=== PATIENT | female | born 1985 | race Caucasian/White ===

== ENCOUNTER 2022-11-02 10:29 | Outpatient (REF) | payer OTHER, SELFPAY ==
--- NOTE | 2022-11-02 09:50 | PAPFT_PTH ---
PATIENT: Rosanne Pierce LOC: [facility]#:[id number] AGE/SX: 37/F ROOM: RE11/02/[address]: Charles Muhammad : 1985 BED: DIS: 11/02/2022 SPEC #: [id number] RECD: 11/02/22 18:09 STATUS: ELICEO REReed #: [id number] SAMMY: 11/02/22 09:[address]: Charles Muhammad DEPT: [facility] Cytology RECD BY: Yamileth Villela Tissues: 1 - CX/ENDOCX FOR PAP SMEARS Procedures: PAP THIN PREP/UVM Screening HPV DNA PROBE Comments: [id number]
== END 2022-11-02 10:30 | disposition home or self-care (01) ==
LOC: NCHCN 10:29
PROVIDERS: PCP Family Medicine; Visit Provider Family Medicine
DX: Z12.4 Encounter for screening for malignant neoplasm of cervix (principal)
CPT/HCPCS: 88142; 87624

== ENCOUNTER 2023-05-17 12:12 | Emergency (ER) | payer OTHER, SELFPAY ==
[2023-05-17] VITALS (8 sets, daily range): BP systolic 147–160; BP diastolic 99–120; PULSE 106–115; RESP 18; TEMP 37.4; O2SAT 93–100
--- NOTE | 2023-05-17 12:45 | DI.CT_ITS ---
Exam(s) CT NECK W EXAM: CT NECK W CLINICAL HISTORY: globus sensation eval for retropharyngeal abscess. TECHNIQUE: Imaging Protocol: Axial computed tomography images with coronal and sagittal reformatted images were created and reviewed CONTRAST MATERIAL: Intravenous: Omnipaque 350 Contrast volume:100 ml contrast COMPARISON: No exams were available for comparison FINDINGS: Parotids/submandibular/thyroid gland: Normal. Lymphadenopathy: Mildly enlarged lymph nodes on the left side of the neck measuring 2 cm. Other sma ller nodes bilaterally. Likely reactive lymph nodes. Carotids/Jugular: No significant stenosis or dissection.. Soft tissues: The floor the mouth is unremarkable. The epiglottis and vocal cords are within normal limits. Lungs: Images through both lung apices are unremarkable. Bones: Vertebral bodies and disc spaces are maintained. Visualized portions of the brain and orbits: Unremarkable. Sinuses and mastoids: Mild ethmoid sinus mucosal thickening. IMPRESSION: Nor mildly enlarged left cervical lymph nodes. No evidence retropharyngeal abscess. RADIATION DOSE DELIVERED: Total DLP DATA REPOSITORY: All CT scans at this facility are submitted to the National Radiology Data Registry (NRDR) Dose Index Registry (DIR) with the [employer] (ACR). RADIATION OPTIMIZATION: All CT scans at this facility use at least one of these dose optimization te chniques: automated exposure control; mA and/or kV adjustment per patient size (includes targeted exa ms where dose is matched to clinical indication); or iterative reconstruction.
[2023-05-17] MEDS: Normal Saline 1,000 ML 1000 ML IV (13:19)
[2023-05-17] MEDS: Ketorolac 15 MG/ML VIAL 7.5 MG IVP (13:19)
[2023-05-17] MEDS: Dexamethasone 10 MG/ML VIAL IVP (13:19)
[2023-05-17] MEDS: Omnipaque 350 MG/ML 100 ML BTL IJ (13:27)
[2023-05-17] MEDS: Normal Saline - Diluent 50 ML VIAL IJ (13:28)
[2023-05-17 13:30] LABS: Abs Immature Grans 0.04 10^3/uL (0.0-0.06); Absolute Basophil Count 0.04 10^3/uL (0.0-0.2); Absolute Eosinophil Count 0.03 10^3/uL (0.0-0.7); Absolute Lymphocyte Count 1.96 10^3/uL (1.2-3.4); Absolute Monocyte Count 1.65 10^3/uL (0.1-0.8); Absolute Neutrophil Count 6.68 10^3/uL (1.2-6.7); Basophils % 0.4; Eosinophils % 0.3; HGB 13.6 g/dL (11.2-15.7); Immature Grans % 0.4; Lymphocytes % 18.8; MCH 30.5 pg (27.0-33.0); MCV 90 fL (80-95); MPV 10.3 fL (8.0-11.0); Monocytes % 15.9; Neutrophils % 64.2; Platelet Count 341 10^3/uL (130-400); RBC 4.46 10^6/uL (3.93-5.22); RDW 12.4 % (11.7-14.6); RDW-SD 41.1 fL
[2023-05-17 13:45] LABS: Mono Screening Negative (Negative)
[2023-05-17 13:48] LABS: COVID-19 PCR Negative (Negative); Influenza A PCR Negative (Negative); Influenza B PCR Negative (Negative); RSV PCR Negative (Negative)
[2023-05-17 13:49] LABS: Diff Comment Diff Reviewed; RBC Morphology Normal
[2023-05-17 13:51] LABS: ALT 32 U/L (14-59); AST 18 U/L (15-37); Albumin 4.1 g/dL (3.4-5.0); Alkaline Phosphatase 82 U/L (46-116); Anion Gap 8.7 mmol/L (3-11); BUN 11 mg/dL (7-18); Bilirubin, Total 0.5 mg/dL (0.2-1.0); CO2 28.3 mmol/L (21.0-32.0); CREATININE 0.9 mg/dL (0.55-1.02); Calcium 9.6 mg/dL (8.5-10.1); Chloride 98 mmol/L (98-107); Estimated GFR 84.97 (mL/min/1.73m2); Glucose 101 mg/dL (74-106); Potassium 3.6 mmol/L (3.5-5.1); Sodium 135 mmol/L (136-145); Total Protein 8.3 g/dL (6.4-8.2)
[2023-05-17 13:55] LABS: Source Nasopharynx
--- NOTE | 2023-05-19 08:38 | ED.GENADUL_ITS ---
Discharge Plan Disposition Patient Disposition: Home Discharge Details Clinical Impression: Acute tonsillitis, Fever Primary Care Provider: Charles Muhammad ED Provider: Yamileth Dey Home Meds and New Rx's Prescriptions: New prednisone 20 mg tablet 40 mg PO ONCE Qty: 8 0RF azithromycin 500 mg tablet 500 mg PO DAILY 5 Days Qty: 5 0RF Continued dextroamphetamine-amphetamine [Adderall XR] 30 mg capsule,extended release 24hr 60 mg PO QAM Discharge Instructions Instructions: Pharyngitis (ED), Fever in Adults (ED) Additional Instructions: Take antibiotic as prescribed, yogurt daily while on antibiotic Take prednisone daily Take Tylenol 650 every 4-6 hours for pain and return earlier should you have new or worsening complaints Referrals: Charles Muhammad MD [Primary Care Provider] - Discharge Data Discharge Date/Time-TO BE ENTERED AT DEPARTURE: 05/17/23 14:39 Medical Decision Making 37-year-old female presenting with report of fever, cough, shortness of breath, difficulty swallowing and sore throat, experiencing globus sensation in throat patient concern for abscess, no visible abscess noted but significant left submandibular lymphadenopathy, mono negative, diagnostic labs reassuring reviewed by me CT was ordered for further evaluation as patient is reporting globus sensation, there was no report of abscess on CT scan per radiology interpretation and my review Patient is feeling improvement Will be day some prednisone for the next several days and antibiotics that she has been sick for a week and a half Chest x-ray ordered as no hypoxia and lungs are clear to auscultation Will need recheck in 24 to 48 hours Return precautions reviewed and patient expressed understanding HPI General Date/Time Provider Initiated Documentation: 05/17/23 12:29 . HPI Narrative: 37-year-old female presents with sore throat, cough, myalgias, congestion, daughter sick with similar symptoms. Intermittent nausea. Symptoms have been present for a week and a half. Has had intermittent nausea and vomiting. Otherwise reportedly healthy. Denies shortness of breath. Has not taken any supportive care prior to presenting for evaluation. Related Data Home Medications Medication Instructions Recorded Confirmed azithromycin 500 mg tablet 500 mg PO DAILY 5 days #5 tabs 05/17/23 dextroamphetamine-amphetamine ER 60 mg PO QAM 05/17/23 05/17/23 30 mg 24hr capsule,extend release (Adderall XR) prednisone 20 mg tablet 40 mg (2 x 20 mg) PO ONCE #8 tabs 05/17/23 Previous Rx's Medication Instructions Recorded azithromycin 500 mg tablet 500 mg PO DAILY 5 days #5 tabs 05/17/23 prednisone 20 mg tablet 40 mg (2 x 20 mg) PO ONCE #8 tabs 05/17/23 Allergies Allergy/AdvReac Type Severity Reaction Status Date / Time No Known Allergies Allergy Unverified 05/17/23 12:29 General Stated Complaint: RespSymp MARIANNE: 3 PFSH All Active Problems (Updated 05/17/23 @ 14:33 by REMA Cruz) Fever (Acute) Acute tonsillitis (Acute) Social History Smoking/Tobacco Use Status: Current every day Tobacco Type: cigarettes Smoking risk assessment performed?: Yes Alcohol Intake: current Alcohol Intake frequency: holidays/special occasions only Drug use: Never Substance use type: does not use Course Vital Signs Vital signs: Vital Signs Temperature 37.4 C 05/17/23 12:20 Pulse 115 H 05/17/23 12:20 Respiratory Rate 18 05/17/23 12:20 Blood Pressure 150/120 H 05/17/23 12:20 Pulse Oximetry 100 05/17/23 12:20 Temperature 37.4 C 05/17/23 12:20 Temperature Source Oral 05/17/23 12:20 Pulse 109 H 05/17/23 14:30 Respiratory Rate 18 05/17/23 12:20 Respiratory Effort Normal 05/17/23 12:35 Respiratory Depth Normal 05/17/23 12:35 Blood Pressure 147/103 H 05/17/23 14:30 Blood Pressure Mean 115 05/17/23 14:30 Blood Pressure Position Sitting 05/17/23 12:20 Pulse Oximetry 96 05/17/23 14:32 Oxygen Delivery Method Room Air 05/17/23 12:20 Oxygen Flow Rate 0 05/17/23 12:20 Pain Level 7 05/17/23 12:20 Lab/Test Results Lab/Test Results: 05/17/23 12:35 Tonsil - Right Group A Streptococcus Culture - Pending Laboratory Tests Range/Units 05/17/23 05/17/23 05/17/23 12:35 12:57 13:21 WBC (4.4-10.8) 10^3/uL 10.40 RBC (3.93-5.22) 10^6/uL 4.46 Hgb (11.2-15.7) g/dL 13.6 Hct (36.0-46.0) % 40.0 MCV (80-95) fL 90 MCH (27.0-33.0) pg 30.5 MCHC (32.0-36.0) % 34.0 RDW (11.7-14.6) % 12.4 Plt Count (130-400) 10^3/uL 341 MPV (8.0-11.0) fL 10.3 Immature Gran % 0.4 Neutrophils % 64.2 Lymphocytes % 18.8 Monocytes % 15.9 Eosinophils % 0.3 Basophils % 0.4 Nucleated RBC % (0.0-0.3) % 0.0 Absolute Neutrophils (1.2-6.7) 10^3/uL 6.68 Absolute Lymphocytes (1.2-3.4) 10^3/uL 1.96 Absolute Monocytes (0.1-0.8) 10^3/uL 1.65 H Absolute Eosinophils (0.0-0.7) 10^3/uL 0.03 Absolute Basophils (0.0-0.2) 10^3/uL 0.04 RBC Morphology Normal Sodium (136-145) mmol/L 135 L Potassium (3.5-5.1) mmol/L 3.6 Chloride (98-107) mmol/L 98 Carbon Dioxide (21.0-32.0) mmol/L 28.3 Anion Gap (3-11) mmol/L 8.7 BUN (7-18) mg/dL 11 Creatinine (0.55-1.02) mg/dL 0.9 Est GFR (CKD-EPI 2020) (mL/min/1.73m2) 84.97 Glucose (74-106) mg/dL 101 Calcium (8.5-10.1) mg/dL 9.6 Total Bilirubin (0.2-1.0) mg/dL 0.5 AST (15-37) U/L 18 ALT (14-59) U/L 32 Alkaline Phosphatase (46-116) U/L 82 Total Protein (6.4-8.2) g/dL 8.3 H Albumin (3.4-5.0) g/dL 4.1 COVID-19 Source Nasopharynx SARS-CoV-2 (PCR) (Negative) Negative Monoscreen (Negative) Negative Influenza Type A (PCR) (Negative) Negative Influenza Type B (PCR) (Negative) Negative RSV (PCR) (Negative) Negative POC Strep Test-GRUPO(Rapid) Start: 05/17/23 12:31 Freq: .Rapid Strep Test Status: Discharge Protocol: Document 05/17/23 12:43 LEONARD (Rec: 05/17/23 12:43 LEONARD [id number]) Strep test-GRUPO(Rapid)-POC POC-Strep test-GRUPO (Rapid) Negative POC-Strep test-GRUPO (Rapid) Negative
== END 2023-05-17 14:39 | disposition home or self-care (01) ==
PROVIDERS: Emergency Provider Physician Assistant; PCP Family Medicine
DX: R50.9 Fever, unspecified (principal); J03.90 Acute tonsillitis, unspecified; R05.9 Cough, unspecified; R06.02 Shortness of breath; R11.2 Nausea with vomiting, unspecified
CPT/HCPCS: 70491; 80053; 87637; 87880; 96374; 96375; 99285; 85025; 86308; 87081; 99284; J1100; J1885; J3490

== ENCOUNTER 2024-04-03 13:38 | Outpatient (REF) | payer OTHER, SELFPAY ==
[2024-04-05 09:49] LABS: HBs Antibody, Quant 558.6 mIU/mL (See Note); Hepatitis B Surface Ab Positive (See Note)
== END 2024-04-03 13:39 | disposition home or self-care (01) ==
LOC: NCHCN 13:38
PROVIDERS: PCP Family Medicine; Visit Provider Family Medicine
DX: Z00.00 Encounter for general adult medical examination without abnormal findings (principal)
CPT/HCPCS: 86706

== ENCOUNTER 2024-06-30 18:27 | Emergency (ER) | payer OTHER, SELFPAY ==
[2024-06-30] VITALS (24 sets, daily range): BP systolic 160–195; BP diastolic 74–135; PULSE 102–155; RESP 8–24; TEMP 37.1; O2SAT 96–100
--- NOTE | 2024-06-30 18:30 | RT.EKG_ITS ---
APPROVED REPORT Exam: Resting ECG Reason for Exam: tachycardia Patient Location: E HR:109 bpm ECG Measurements Heart Rate 109 AXIS TN 167 P 16 QRSd 87 QRS 61 QT 354 T 41 QTc 478 Conclusion Sinus tachycardia, rate 109 No interval abnormalities No STEMI No prior available for comparison
--- NOTE | 2024-06-30 19:01 | ED.GENADUL_ITS ---
Discharge Plan Disposition Patient Disposition: Home Condition: Stable Discharge Details Clinical Impression: Brain fog, Headache, Tingling in extremities Primary Care Provider: Charles Muhammad ED Provider: Erlinda Enrique Home Meds and New Rx's Prescriptions: No Action dextroamphetamine-amphetamine [Adderall XR] 30 mg capsule,extended release 24hr 60 mg PO QAM Discharge Instructions Instructions: Headache, Adult ED Additional Instructions: You were seen in the emergency department today for evaluation of brain fog, arm tingling, and headache. In our department he had a full physical examination performed, had laboratory studies that were reassuring and had a CT scan of your brain that did not show any abnormalities which could explain your symptoms. Unfortunately, we are sometimes unable to determine the exact cause of symptoms in the emergency department, and next steps include follow-up with your primary care provider to discuss this visit, your blood pressure, and any other ongoing concerns. It is safe for you to use [id number] medications to manage your headaches such as Tylenol or ibuprofen. Thank you for allowing us to be part of your care HPI General Mode of arrival: ambulatory . Date/Time Provider Initiated Documentation: 06/30/24 18:28 . Limitations to Documentation: no limitations . Information obtained by: patient and old records reviewed . HPI Narrative: HPI: This is a patient with a past medical history significant for ADHD and anisocoria who is presenting for evaluation of brain fog and arm numbness. The patient reports that yesterday she felt like her eyes will get stuck unfocused, she would feel like she was staring and had an intermittent frontal headache. She states that last night she felt well enough to go to a holiday celebration, did have some alcoholic beverages, and this morning was at her daughter's birthday constitution party. She states that she took some ibuprofen and has been rehydra ting, noted that her bilateral arms felt tingly. The patient reports that she feels like she is having a stroke. She reports that she has been able to walk and has not felt any weakness. Her headache comes and goes and is currently improved. No reported changes in her vision at this time, states that she has never had a stroke. No recent injuries or trauma, no illnesses or fevers. Does use a Nexplanon implant as hormonal control. She did note over the last several months worsening of the small bulge in her external jugular vein, which has not been worked up in the outpatient env ironment. Exam: Gen: Awake and alert, in no apparent distress HEENT: Non-icteric sclera, pupils are reactive bilaterally, right pupil very slightly larger than left, which patient reports is baseline. Neck: Supple Lungs: No apparent respiratory distress, normal respiratory effort. CV: Appears well perfused, heart with tachycardic rate, regular rhythm, strong distal pulses Abdomen: Non-distended MSK: Moves 4 extremities without apparent limitation in ROM Skin: Visualized skin without rashes, cyanosis. Neuro: Normal Gait, cranial nerves II through XII intact and symmetrical bilaterally, 5 out of 5 strength x 4 extremities, tingling/numb sensation appreciated bilateral upper extremities. Accurate targeting bilaterally with [id number]. Psych: Appropriate for situation. MDM: This is a 38-year-old female patient presenting for evaluation of a day and a half of headache, brain fog, and arm numbness. My differential includes but is not limited to intracranial abnormalities including dural venous sinus thrombosis, certainly considered intracranial hemorrhage, stroke, mass effect. Considered metabolic and electrolyte derangements, medication effects, infectious abnormalities, and certainly the patient endorses a component of concern, and carpopedal spasms in the setting of hyperventilation might also be considered. We will proceed with a CT head with and without venogram to evaluate for abnormalities, as well as laboratory studies to include CBC, CMP, magnesium, INR. EKG obtained, which shows a sinus tachycardia without evidence of ischemia, interval abnormality or ectopy. ED Course: I independently interpreted the laboratory studies, which show no significant leukocytosis, anemia, or thrombocytopenia. The chemistry panel is without evidence of electrolyte abnormality, kidney dysfunction, or liver injury. Independently interpreted the patient's CT head, which shows no evidence of intracranial hemorrhage, mass effect, nor dural venous sinus thrombosis. The patient did have an episode of rapid breathing with worsening of her hand tingling, which improved with a dose of oral Ativan as well as guided breathing. The findings were shared with the patient who endorses frustration at the lack of diagnostic clarity, and I did encourage her to follow-up with her primary care provider for reassessment of her chronic concerns as well as next steps in workup and management of her brain fog and headaches. She was hypertensive at the time of discharge, but given her distress I am hesitant to start her on an oral antihypertensive for fear of hypotension in the outpatient environment and recommended reassessment of blood pressure in the outpatient environment by her primary care provider. At this time, the patient has had a full medical evaluation and is safe for discharge to home. They are hemodynamically stable, ambulatory, and tolerating PO. They are understanding of the follow-up plan and return precautions. They left our facility without incident. Erlinda Enrique MD Related Data Home Medications ?Medication ?Instructions ?Recorded ?Confirmed dextroamphetamine-amphetamine ER 60 mg PO QAM 05/17/23 06/30/24 30 mg 24hr capsule,extend release (Adderall XR) Allergies Allergy/AdvReac Type Severity Reaction Status Date / Time No Known Allergies Allergy Unverified 06/30/24 18:32 General Stated Complaint: CVA/TIA MARIANNE: 3 Course Vital Signs Vital signs: Vital Signs Temperature 37.1 C 06/30/24 18:29 Pulse 120 H 06/30/24 18:29 Respiratory Rate 18 06/30/24 18:29 Blood Pressure 184/74 H 06/30/24 18:29 Pulse Oximetry 100 06/30/24 18:29 Temperature 37.1 C 06/30/24 18:29 Pulse 120 H 06/30/24 18:29 Respiratory Rate 18 06/30/24 18:29 Blood Pressure 184/74 H 06/30/24 18:29 Pulse Oximetry 100 06/30/24 18:29 Pain Level 0 06/30/24 18:29 Medical Decision Making Quality:SDOH Health Related Social Needs: No Data to Display PFSH All Active Problems (Updated 06/30/24 @ 21:42 by Erlinda Enrique MD) Tingling in extremities (Acute) Headache (Acute) Brain fog (Acute) Social History Smoking/Tobacco Use Status: Current every day Tobacco Type: cigarettes Smoking risk assessment performed?: Yes Alcohol Intake: current Alcohol Intake frequency: holidays/special occasions only Drug use: Never Substance use type: does not use Do you feel safe at home: Yes Do you feel safe in your relationship?: Yes
[2024-06-30 19:15] LABS: Abs Immature Grans 0.02 10^3/uL (0.0-0.06); Absolute Basophil Count 0.03 10^3/uL (0.0-0.2); Absolute Eosinophil Count 0.13 10^3/uL (0.0-0.7); Absolute Lymphocyte Count 2.93 10^3/uL (1.2-3.4); Absolute Neutrophil Count 4.35 10^3/uL (1.2-6.7); Basophils % 0.4 %; Eosinophils % 1.6 %; HCT 37.5 % (36.0-46.0); HGB 12.7 g/dL (11.2-15.7); Immature Grans % 0.2 %; Lymphocytes % 35.5 %; MCH 30.4 pg (27.0-33.0); MCHC 33.9 % (32.0-36.0); MCV 90 fL (80-95); MPV 10.4 fL (8.0-11.0); Monocytes % 9.7 %; Neutrophils % 52.6 %; Platelet Count 306 10^3/uL (130-400); RBC 4.18 10^6/uL (3.93-5.22); RDW 12.4 % (11.7-14.6); RDW-SD 40.9 fL; WBC 8.26 10^3/uL (4.4-10.8)
[2024-06-30 19:22] LABS: Prothrombin Time 10.5 sec (9.1-11.1)
[2024-06-30] MEDS: LORazepam 1 MG TAB PO (19:23)
[2024-06-30 19:25] LABS: ALT 20 U/L (14-59); AST 19 U/L (15-37); Alkaline Phosphatase 61 U/L (46-116); Anion Gap 10.8 mmol/L (3-11); BUN 9 mg/dL (7-18); Bilirubin, Total 0.75 mg/dL (0.2-1.0); CO2 25.2 mmol/L (21.0-32.0); Calcium 8.8 mg/dL (8.5-10.1); Chloride 102 mmol/L (98-107); Estimated GFR 74.41 (mL/min/1.73m2); Glucose 101 mg/dL (74-106); Magnesium 1.9 mg/dL (1.8-2.4); Potassium 3.5 mmol/L (3.5-5.1); Sodium 138 mmol/L (136-145); Total Protein 7.4 g/dL (6.4-8.2)
--- NOTE | 2024-06-30 19:46 | DI.CT_ITS ---
Exam(s) CT HEAD WO/W EXAM: CT HEAD WO/W CLINICAL HISTORY: Eval dural venous sinus thrombosis. TECHNIQUE: Imaging Protocol: Axial computed tomography images with coronal and sagittal reformatted images were created and reviewed. CONTRAST MATERIAL: Intravenous: Omnipaque 350 Contrast volume:100 ml COMPARISON: No exams were available for comparison FINDINGS: Ventricles and Extra axial spaces: Normal in size and morphology for the patient's age. Hemorrhage: None. Cerebral parenchyma: Normal. Enhancement: No suspicious enhancement. Normal enhancement of the dural venous sinuses. [id number] llis vasculature appears normal. Midline shift: None. Brainstem/Cerebellum: Normal. Calvarium: Normal. Visualized Paranasal sinuses/Mastoids: Clear. IMPRESSION: Normal CT scan of the head.No evidence of venous sinus thrombosis. RADIATION DOSE DELIVERED: Total DLP DATA REPOSITORY: All CT scans at this facility are submitted to the National Radiology Data Registry (NRDR) Dose Index Registry (DIR) with the [employer] (ACR). RADIATION OPTIMIZATION: All CT scans at this facility use at least one of these dose optimization te chniques: automated exposure control; mA and/or kV adjustment per patient size (includes targeted exa ms where dose is matched to clinical indication); or iterative reconstruction.
[2024-06-30] MEDS: Omnipaque 350 MG/ML 100 ML BTL IJ (19:50)
[2024-06-30] MEDS: Normal Saline - Diluent 50 ML VIAL IJ (19:50)
--- NOTE | 2024-06-30 21:27 | DI.VRAD_ITS ---
PROCEDURE INFORMATION: Exam: CT Head Without And With Contrast Exam date and time: 06/30/2024 7:31 PM Age: 38 years old Clinical indication: Eval dural venous sinus thrombosis TECHNIQUE: Imaging protocol: Computed tomography of the head without and with contrast. COMPARISON: CT NECK W 05/17/2023 1:14 PM FINDINGS: Brain: Normal. No hemorrhage. Unremarkable white matter. No mass effect. Cerebral ventricles: No ventriculomegaly. Paranasal sinuses: Visualized sinuses are unremarkable. No fluid levels. Mastoid air cells: Visualized mastoid air cells are well aerated. Bones: Unremarkable. No acute fracture. Soft tissues: Unremarkable. IMPRESSION: No acute intracranial abnormality. No venous sinus thrombosis. Dictated and Authenticated by: Perico Claire MD. Ordering:JESU Hardin MD
== END 2024-06-30 22:17 | disposition home or self-care (01) ==
PROVIDERS: Emergency Provider Emergency Medicine; PCP Family Medicine
DX: R41.89 Other symptoms and signs involving cognitive functions and awareness (principal); R20.2 Paresthesia of skin; R51.9 Headache, unspecified; R00.0 Tachycardia, unspecified; F17.210 Nicotine dependence, cigarettes, uncomplicated
CPT/HCPCS: 36415; 80053; 81025; 93005; 99285; 70470; 83735; 85025; 85610; 93010; J3490

== ENCOUNTER 2024-11-15 10:09 | Outpatient (REF) | payer OTHER, SELFPAY ==
[2024-11-15 16:46] LABS: Abs Immature Grans 0.01 10^3/uL (0.0-0.06); Absolute Basophil Count 0.03 10^3/uL (0.0-0.2); Absolute Eosinophil Count 0.13 10^3/uL (0.0-0.7); Absolute Monocyte Count 0.54 10^3/uL (0.1-0.8); Absolute Neutrophil Count 1.65 10^3/uL (1.2-6.7); Basophils % 0.7 %; Eosinophils % 3.2 %; HGB 13.5 g/dL (11.2-15.7); Immature Grans % 0.2 %; Lymphocytes % 41.9 %; MCH 29.7 pg (27.0-33.0); MCHC 32.9 % (32.0-36.0); MCV 90 fL (80-95); MPV 11.6 fL (8.0-11.0); Monocytes % 13.3 %; Neutrophils % 40.7 %; Platelet Count 288 10^3/uL (130-400); RBC 4.54 10^6/uL (3.93-5.22); RDW 12.7 % (11.7-14.6); RDW-SD 41.9 fL; WBC 4.06 10^3/uL (4.4-10.8)
[2024-11-15 16:48] LABS: ESR 4 mm/hr (0-20)
[2024-11-15 17:38] LABS: ALT 29 U/L (14-59); AST 20 U/L (15-37); Albumin 4.4 g/dL (3.4-5.0); Alkaline Phosphatase 52 U/L (46-116); Anion Gap 8.7 mmol/L (3-11); BUN 12 mg/dL (7-18); Bilirubin, Total 0.8 mg/dL (0.2-1.0); CO2 27.3 mmol/L (21.0-32.0); CREATININE 0.9 mg/dL (0.55-1.02); Calcium 9.5 mg/dL (8.5-10.1); Calculated LDL 87 mg/dL (<100); Chloride 101 mmol/L (98-107); Cholesterol 176 mg/dL (<200); Estimated GFR 83.92 (mL/min/1.73m2); Glucose 94 mg/dL (74-106); HDL Cholesterol 84 mg/dL (>or=50); Potassium 4.4 mmol/L (3.5-5.1); Sodium 137 mmol/L (136-145); Total Protein 7.5 g/dL (6.4-8.2); Triglyceride 28 mg/dL (<150)
[2024-11-15 22:25] LABS: Rheumatoid Factor <8.6 IU/mL (<12.0)
[2024-11-16 15:16] LABS: ANA Interpretation Negative (Negative)
== END 2024-11-15 10:10 | disposition home or self-care (01) ==
LOC: NCHCN 10:09
PROVIDERS: PCP Family Medicine; Visit Provider Family Medicine
DX: Z00.00 Encounter for general adult medical examination without abnormal findings (principal); I73.00 Raynaud's syndrome without gangrene
CPT/HCPCS: 80053; 80061; 85652; 85025; 86038; 86431